=== PATIENT | female | born 1960 | race African-American/Black ===

== ENCOUNTER 2023-10-10 19:21 | Emergency (ER) | payer OTHER ==
[2023-10-10 21:17] LABS: SARS-CoV-2 NAA Rapid Test Not Detected (NotDetected)
== END 2023-10-10 21:37 | disposition home or self-care (01) ==
LOC: NAV ERS 19:21
DX: J10.1 Influenza due to other identified influenza virus with other respiratory manifestations (principal); I10 Essential (primary) hypertension; E11.9 Type 2 diabetes mellitus without complications; Z79.02 Long term (current) use of antithrombotics/antiplatelets
CPT/HCPCS: 71046; 99283

== ENCOUNTER 2025-08-24 10:37 | Outpatient (CLI) | payer OTHER | END 2025-08-24 10:38 | disposition home or self-care (01) | LOC: NAV RAD 10:37 | PROVIDERS: ATTEND Student in an Organized Health Care Education/Training Program | DX: M25.50 Pain in unspecified joint (principal); M19.072 Primary osteoarthritis, left ankle and foot; M20.11 Hallux valgus (acquired), right foot; M21.611 Bunion of right foot | CPT/HCPCS: 71046 ==